=== PATIENT | male | born 1955 | race Caucasian/White ===

== ENCOUNTER → 2018-07-01 | Outpatient (CLI) | payer BC | LOC: LAB FS 08:13 | PROVIDERS: ATTEND Pediatrics | DX: Z12.5 Encounter for screening for malignant neoplasm of prostate (principal); R73.01 Impaired fasting glucose | CPT/HCPCS: 36415; 83036; 84153 ==

== ENCOUNTER → 2018-10-21 | Outpatient (CLI) | payer BC ==
--- NOTE | 2018-10-21 16:33 | Diagnostic Imaging Report ---
INDICATION: Right knee pain and swelling for two weeks. TIME OF EXAM: 02:48 p.m. FINDINGS: Three views of the right knee were obtained. Alignment is normal. The joint spaces are well maintained. The articular surfaces are smooth. Mild patellofemoral degenerative change is seen. There is some suprapatellar fullness suggestive of a halok-ti-jxesyljy joint effusion. No fracture or dislocation is seen. IMPRESSION: Joint effusion. No acute bony abnormality is detected. Dictated by: Dictated on workstation # [id number]
== END ==
LOC: RAD FS 14:43
PROVIDERS: ATTEND Nurse Practitioner
DX: M25.461 Effusion, right knee (principal)
CPT/HCPCS: 73562

== ENCOUNTER → 2018-12-30 | Outpatient (CLI) | payer BC ==
[2018-12-30 09:33] LABS: BUN/CREATININE RATIO 22; CALCIUM 9.4 MG/DL (8.5-10.1); CARBON DIOXIDE 23 MMOL/L (21-32); CHLORIDE 102 MMOL/L (98-107); CREATININE SERUM 0.92 MG/DL (0.60-1.30); GFR ESTIMATED > 60; GLUCOSE 108 MG/DL (70-105); POTASSIUM 4.1 MMOL/L (3.6-5.0); SODIUM 139 MMOL/L (135-145)
[2018-12-30 09:34] LABS: ALANINE AMINOTRANSFERASE 28 U/L (0-55); ALBUMIN 4.5 GM/DL (3.2-4.5); ALKALINE PHOSPHATASE 99 U/L (40-136); BILIRUBIN,TOTAL 1.1 MG/DL (0.1-1.0); TOTAL PROTEIN 7.3 GM/DL (6.4-8.2)
[2018-12-30 15:24] LABS: CHOLESTEROL 111 MG/DL (< 200); HDL CHOLESTEROL 34 MG/DL (40-60); TRIGLYCERIDES 69 MG/DL (<150); VLDL CHOLESTEROL 14 MG/DL (5-40)
== END ==
LOC: LAB FS 08:23
PROVIDERS: ATTEND Pediatrics
DX: E78.00 Pure hypercholesterolemia, unspecified (principal); I25.10 Atherosclerotic heart disease of native coronary artery without angina pectoris
CPT/HCPCS: 36415; 80053; 80061; 83036

== ENCOUNTER 2022-03-11 11:58 | Emergency (ER) | payer BC ==
[~2022-03-11] VITALS: Ht 167.7 cm; Wt 72.6 kg
--- NOTE | 2022-03-11 11:59 | ED General ---
General Stated Complaint: SYNCOPAL EPISODE History of Present Illness Date Seen by Provider: Mar 11, 2022 Time Seen by Provider: 11:59 Initial Comments 66-year-old male presents following a syncopal episode. Patient reports that he was at work when his stomach got real gurgly. He had 2 episodes of very loose stool which he was concerned he may be some blood in them. He does report that he just recently had to colonoscopies which she has a small polyp that they were unable to remove otherwise the colonoscopy was normal. He states that he had been feeling fine today prior to this episode of loose stool. He reports the stool is very dark and watery. That after the second episode he got up was coming in the hallway when he got little lightheaded had a syncopal event. He reports a little nausea just prior to the syncope event. He reports that he hit his head when he blacked out does have a small abrasion over the bridge of his nose. Allergies and Home Medications Allergies Coded Allergies: No Known Drug Allergies (Unverified , 03/11/22) Patient Home Medication List Home Medication List Reviewed: Yes Review of Systems Review of Systems Constitutional: chills, dizziness, weakness EENTM: see HPI, nose pain Respiratory: no symptoms reported Cardiovascular: No chest pain, No palpitations; syncope Gastrointestinal: No abdominal pain; diarrhea, nausea; No vomiting Genitourinary: no symptoms reported Musculoskeletal: no symptoms reported Skin: no symptoms reported Psychiatric/Neurological: No Symptoms Reported Physical Exam Vital Signs Vital Signs - First Documented 03/11/22 11:58 Temp 36.7 Pulse 73 Resp 17 B/P (MAP) 114/82 (93) O2 Delivery Room Air Capillary Refill : Height, Weight, BMI Height: '" Weight: lbs. oz. 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 Norm as Tested Skin: Other (Abrasion bridge of nose) Progress/Results/Core Measures Suspected Sepsis SIRS Temperature: Pulse: Respiratory Rate: Laboratory Tests 03/11/22 12:06: White Blood Count 6.8 Blood Pressure / Mean: Laboratory Tests 03/11/22 12:06: Creatinine 0.82, Platelet Count 217, Total Bilirubin 0.5 Results/Orders Lab Results Laboratory Tests Test 03/11/22 12:06 03/11/22 12:09 Range/Units White Blood Count 6.8 4.3-11.0 10^3/uL Red Blood Count 3.95 L 4.30-5.52 10^6/uL Hemoglobin 12.4 L 13.3-17.7 g/dL Hematocrit 37 L 40-54 % Mean Corpuscular Volume 93 80-99 fL Mean Corpuscular Hemoglobin 31 25-34 pg Mean Corpuscular Hemoglobin Concent 34 32-36 g/dL Red Cell Distribution Width 12.4 10.0-14.5 % Platelet Count 217 130-400 10^3/uL Mean Platelet Volume 8.9 L 9.0-12.2 fL Immature Granulocyte % (Auto) 1 % Neutrophils (%) (Auto) 53 42-75 % Lymphocytes (%) (Auto) 32 12-44 % Monocytes (%) (Auto) 11 0-12 % Eosinophils (%) (Auto) 2 0-10 % Basophils (%) (Auto) 0 0-10 % Neutrophils # (Auto) 3.6 1.8-7.8 10^3/uL Lymphocytes # (Auto) 2.2 1.0-4.0 10^3/uL Monocytes # (Auto) 0.7 0.0-1.0 10^3/uL Eosinophils # (Auto) 0.1 0.0-0.3 10^3/uL Basophils # (Auto) 0.0 0.0-0.1 10^3/uL Immature Granulocyte # (Auto) 0.1 0.0-0.1 10^3/uL Sodium Level 142 135-145 MMOL/L Potassium Level 3.9 3.6-5.0 MMOL/L Chloride Level 108 H 98-107 MMOL/L Carbon Dioxide Level 20 L 21-32 MMOL/L Anion Gap 14 5-14 MMOL/L Blood Urea Nitrogen 13 7-18 MG/DL Creatinine 0.82 0.60-1.30 MG/DL Estimat Glomerular Filtration Rate 97 BUN/Creatinine Ratio 16 Glucose Level 146 H 70-105 MG/DL Calcium Level 8.1 L 8.5-10.1 MG/DL Corrected Calcium 8.4 L 8.5-10.1 MG/DL Magnesium Level 1.8 1.6-2.4 MG/DL Total Bilirubin 0.5 0.1-1.0 MG/DL Aspartate Amino Transf (AST/SGOT) 16 5-34 U/L Alanine Aminotransferase (ALT/SGPT) 26 0-55 U/L Alkaline Phosphatase 91 40-136 U/L Troponin I < 0.30 <0.30 NG/ML C-Reactive Protein < 0.30 <0.50 MG/DL Total Protein 5.9 L 6.4-8.2 GM/DL Albumin 3.6 3.2-4.5 GM/DL Influenza Type A (RT-PCR) Not Detected Not Detecte Influenza Type B (RT-PCR) Not Detected Not Detecte SARS-CoV-2 RNA (RT-PCR) Detected H Not Detecte My Orders Orders - NEWMAN,DORINA L DO Ct Head Wo (03/11/22 12:11) Cbc With Automated Diff (03/11/22 12:11) Comprehensive Metabolic Panel (03/11/22 12:11) Magnesium (03/11/22 12:11) Procalcitonin (Pct) (03/11/22 12:11) Influenza A And B By Pcr (03/11/22 12:11) Crp Fs (03/11/22 12:11) Troponin I Fs (03/11/22 12:11) Covid 19 Inhouse Test (03/11/22 12:11) Ekg Tracing (03/11/22 12:11) Monitor-Rhythm Ecg Trace Only (03/11/22 12:11) Ondansetron Injection (Zofran Injectio (03/11/22 12:15) Lactated Ringers (Lr 1000 Ml Iv Solution (03/11/22 12:11) Medications Given in ED Current Medications Medications Dose Ordered Sig/Evin Route Start Time Stop Time Status Last Admin Dose Admin Ondansetron HCl 4 mg ONCE ONCE IVP 03/11/22 12:15 03/11/22 12:16 DC 03/11/22 12:22 4 MG Vital Signs/I&O 03/11/22 11:58 Temp 36.7 Pulse 73 Resp 17 B/P (MAP) 114/82 (93) O2 Delivery Room Air Capillary Refill : Progress Note : Progress Note Patient with dark red bloody stool while here in the ER with clots. Patient with a stable hemoglobin however I do not have 1 I can compare it to. Due to his active rectal bleeding and syncope we will admit patient. They are requesting [facility] since that is where patient's previous colonoscopy was performed. Called [facility] and discussed with Dr. Villafuerte who accepted patient based on bed availability. [facility] then called back and reports that they did not have any beds available and were going to decline acceptance. Family then discussed with patient's PCP and other physician at [facility]. We then received another call back that reports that [facility] is going to accept patient and we we will be awaiting placement. Patient was stable during his stay. ECG Initial ECG Impression Date: Mar 11, 2022 Initial ECG Impression Time: 12:24 Initial ECG Rate: 66 Initial ECG Rhythm: Normal Sinus Initial ECG Intervals: Normal Initial ECG Impression: Normal Departure Impression Primary Impression: GI (gastrointestinal hemorrhage) Qualified Codes: K92.2 - Gastrointestinal hemorrhage, unspecified Additional Impressions: Syncope Qualified Codes: R55 - Syncope and collapse COVID-19 Disposition: 02 XFER SHT-TRM HOSP Condition: Stable Transfer Transfer Reason: Patient preference Time Spoke to Accepting Phy: 14:25 Transfer Facility: [facility] Method of Transfer: EMS DORINA NEWMAN DO Mar 11, 2022 11:59
[2022-03-11] MEDS ORDERED: LACTATED RINGERS 1,000 ML IV STA (12:11)
[2022-03-11] MEDS ORDERED: ONDANSETRON 4 MG/2 ML (SDV) Z0FRAN IVP ONE (12:15)
[2022-03-11 12:20] LABS: BASOPHILS % (AUTO) 0 % (0-10); EOSINOPHILS # (AUTO) 0.1 10^3/uL (0.0-0.3); EOSINOPHILS % (AUTO) 2 % (0-10); HEMATOCRIT 37 % (40-54); HEMOGLOBIN 12.4 g/dL (13.3-17.7); LYMPHOCYTES # (AUTO) 2.2 10^3/uL (1.0-4.0); LYMPHOCYTES % (AUTO) 32 % (12-44); MEAN CORPUSCULAR HEMOGLOBIN 31 pg (25-34); MEAN CORPUSCULAR HGB CONC 34 g/dL (32-36); MEAN CORPUSCULAR VOLUME 93 fL (80-99); MEAN PLATELET VOLUME 8.9 fL (9.0-12.2); MONOCYTES # (AUTO) 0.7 10^3/uL (0.0-1.0); MONOCYTES % (AUTO) 11 % (0-12); NEUTROPHILS # (AUTO) 3.6 10^3/uL (1.8-7.8); NEUTROPHILS % (AUTO) 53 % (42-75); PLATELET COUNT 217 10^3/uL (130-400); WHITE BLOOD COUNT 6.8 10^3/uL (4.3-11.0)
[2022-03-11 12:44] LABS: ALKALINE PHOSPHATASE 91 U/L (40-136); BILIRUBIN,TOTAL 0.5 MG/DL (0.1-1.0); BUN/CREATININE RATIO 16; CALCIUM 8.1 MG/DL (8.5-10.1); CARBON DIOXIDE 20 MMOL/L (21-32); CHLORIDE 108 MMOL/L (98-107); CREATININE SERUM 0.82 MG/DL (0.60-1.30); GFR ESTIMATED 97; GLUCOSE 146 MG/DL (70-105); MAGNESIUM 1.8 MG/DL (1.6-2.4); POTASSIUM 3.9 MMOL/L (3.6-5.0); SODIUM 142 MMOL/L (135-145)
[2022-03-11 12:45] LABS: ALANINE AMINOTRANSFERASE 26 U/L (0-55); ALBUMIN 3.6 GM/DL (3.2-4.5); TOTAL PROTEIN 5.9 GM/DL (6.4-8.2)
--- NOTE | 2022-03-11 12:57 | Diagnostic Imaging Report ---
INDICATION: Syncope. TECHNIQUE: Multiple contiguous axial images were obtained through the brain without the use of intravenous contrast. Auto Exposure Controls were utilized during the CT exam to meet ALARA standards for radiation dose reduction. COMPARISON: There is no prior head CT for comparison. FINDINGS: There were no extra-axial fluid collections. No intracranial hemorrhage. No intracranial mass or mass effect. No midline shift. Ventricles are normal in size and position. There were no focal parenchymal abnormalities in the brain. Calvarial windows are unremarkable. IMPRESSION: Negative noncontrast brain CT. Dictated by: Dictated on workstation # [id number]
[2022-03-11 18:40] VITALS: BP 119/67
== END 2022-03-11 18:40 | disposition short-term general hospital (02) ==
LOC: EDUNIT# 11:58 → ER FS 11:59
DX: U07.1 COVID-19 (principal); K92.2 Gastrointestinal hemorrhage, unspecified; S00.31XA Abrasion of nose, initial encounter; R55 Syncope and collapse; W22.8XXA Striking against or struck by other objects, initial encounter; Y92.59 Other trade areas as the place of occurrence of the external cause; Y99.0 Civilian activity done for income or pay
CPT/HCPCS: 36415; 70450; 80053; 83735; 84145; 84484; 85025; 86141; 87636; 93005; 93041

== ENCOUNTER → 2022-04-28 | Outpatient (CLI) | payer BC ==
[2022-04-28 15:51] LABS: HEMATOCRIT 39 % (40-54); HEMOGLOBIN 13.2 g/dL (13.3-17.7); MEAN CORPUSCULAR HEMOGLOBIN 32 pg (25-34); MEAN CORPUSCULAR HGB CONC 34 g/dL (32-36); MEAN CORPUSCULAR VOLUME 95 fL (80-99); MEAN PLATELET VOLUME 8.2 fL (9.0-12.2); PLATELET COUNT 296 10^3/uL (130-400); WHITE BLOOD COUNT 10.9 10^3/uL (4.3-11.0)
[2022-04-28 16:14] LABS: POTASSIUM 4.1 MMOL/L (3.6-5.0)
[2022-04-28 16:15] LABS: CREATININE SERUM 0.87 MG/DL (0.60-1.30)
[2022-04-28 16:16] LABS: CALCIUM 9.5 MG/DL (8.5-10.1)
== END ==
LOC: LAB FS 15:34
PROVIDERS: ATTEND Pediatrics
DX: R53.1 Weakness (principal); Z98.890 Other specified postprocedural states
CPT/HCPCS: 36415; 80048; 85027